=== PATIENT | male | born 1970 | race Caucasian/White ===

== ENCOUNTER 2017-02-01 06:02 | Emergency (ER) | payer BC ==
[2017-02-01 06:09] VITALS: RESP 18
--- NOTE | 2017-02-01 06:29 | ED ---
Skin/Abscess/FB HPI - General Chief complaint: Skin/Abscess/Foreign Body Stated complaint: Cyst Time Seen by Provider: 02/01/17 06:19 Source: patient Mode of arrival: ambulatory Limitations: no limitations - History of Present Illness Initial comments: Patient is a 46-year-old man who presents to be evaluated for what he is describing as a infected hair follicle, and indicates the suprapubic area. The patient noticed that there was a little swelling there a few weeks ago. He was seen at a clinic approximately a week ago and started on Vioxx but states this is not going away. He denies any systemic symptoms, including no fever or chills, palpitations, chest pain or dyspnea. Patient denies any abdominal pain. MD complaint: abscess/boil Onset/Timin -: week(s) Tetanus Up to Date: yes Severity: mild Quality: aching Consistency: constant Improves with: none Worsens with: none Associated symptoms: denies other symptoms - Related Data Home Medications Medication Instructions Recorded Confirmed No Known Home Medications [No 02/01/17 02/01/17 Known Home Medications] Allergies Allergy/AdvReac Type Severity Reaction Status Date / Time No Known Allergies Allergy Verified 02/01/17 06:09 Review of Systems ROS Statement: Those systems with pertinent positive or pertinent negative responses have been documented in the HPI. ROS Other: All systems not noted in ROS Statement are negative. Constitutional: Denies: fever, chills Respiratory: Denies: dyspnea Cardiovascular: Denies: chest pain, palpitations Skin: Reports: as per HPI, lesions Past Medical History Past Medical History: No Reported History History of Any Multi-Drug Resistant Organisms: None Reported Past Surgical History: Cholecystectomy, Orthopedic Surgery Additional Past Surgical History / Comment(s): Right knee Past Psychological History: No Psychological Hx Reported Smoking Status: Current every day smoker Past Alcohol Use History: Occasional Past Drug Use History: Marijuana General Exam Limitations: no limitations General appearance: alert, in no apparent distress Respiratory exam: Present: normal lung sounds bilaterally. Absent: respiratory distress, wheezes, rales, rhonchi, stridor Cardiovascular Exam: Present: regular rate, normal rhythm, normal heart sounds GI/Abdominal exam: Present: soft. Absent: distended, tenderness, guarding, rebound, mass Skin exam: Present: warm, dry, intact, erythema, other (Patient has an approximately 1.5-2 cm rubbery, palpable cyst in the suprapubic area with some overlying erythema, approximately 4 cm in diameter.) Course Vital Signs 02/01/17 06:05 Temperature 97.8 F Pulse Rate 74 Respiratory 18 Rate Blood Pressure 150/91 O2 Sat by Pulse 97 Oximetry Medical Decision Making - Medical Decision Making Patient is a 46-year-old man who has an infected sebaceous cyst. After discussion of risk, benefits, indications, patient agreed with attempting removal of the cyst. Local lidocaine was infused over the cyst and the skin was nicked with a scalpel. The incision was opened with blunt dissection revealing the capsule of the cyst. Blunt dissection was used to free the patient's left margin of the cyst and inferring the right margin of the cyst did rupture, freeing approximately 2 mL of sebaceous material mixed with pus. I was able to remove part of the capsule but some of it did remain. The patient requested that an attempt to remove the remainder of the cyst capsule as he was having some pain associated with this. A tail of iodoform gauze was placed. Results discussed with the patient and he'll be referred to the surgeon to see if further drainage is required. Disposition Clinical Impression: Infected sebaceous cyst Disposition: HOME SELF-CARE Condition: Good Instructions: Abscess Incision and Drainage (ED) Referrals: None,Stated [Primary Care Provider] - 1-2 days Rachel Pruett DO [Doctor of Osteopathic Medicine] - 1-2 days
[2017-02-01 07:14] VITALS: BP 156/94; PULSE 58; TEMP 97.2
== END 2017-02-01 07:13 | disposition home or self-care (01) ==
LOC: EC 06:02
DX: L08.9 Local infection of the skin and subcutaneous tissue, unspecified (principal); L72.3 Sebaceous cyst; F17.200 Nicotine dependence, unspecified, uncomplicated; Z90.49 Acquired absence of other specified parts of digestive tract
CPT/HCPCS: 10060; 99282

== ENCOUNTER → 2019-09-20 | Outpatient (CLI) | payer BC ==
--- NOTE | 2019-09-20 16:43 | CT ---
EXAMINATION TYPE: CT abdomen pelvis wo con DATE OF EXAM: 09/20/2019 COMPARISON: None HISTORY: Abdominal and pelvic pain CT DLP: 940 mGycm Examination of the solid and hollow viscera is limited given the lack of contrast. FINDINGS: LUNG BASES: No evidence for nodule. No evidence for infiltrate. LIVER/GB: The gallbladder is surgically absent. No space-occupying hepatic lesion. PANCREAS: No pancreatic mass identified. No inflammatory process seen. SPLEEN: No evidence for splenomegaly. No intrasplenic lesions seen. ADRENALS: No adrenal nodules identified. No evidence for thickening. KIDNEYS: No evidence for renal mass. No nephrolithiasis. No hydronephrosis. BOWEL: Appendix has a normal appearance. No evidence of bowel obstruction. No inflammatory process. Lymph nodes: No evidence for adenopathy greater than 1 cm. Abdominal aorta: Atheromatous changes seen. No evidence for aneurysm. Genital organs: No significant abnormality. Other: No significant abnormality. IMPRESSION: NO SIGNIFICANT ABNORMALITY TO ACCOUNT FOR THE PATIENT'S SYMPTOMS.
== END | disposition home or self-care (01) ==
LOC: RADCTMAIN 09:54
PROVIDERS: ATTEND Family Medicine
DX: R10.9 Unspecified abdominal pain (principal)
CPT/HCPCS: 74176

== ENCOUNTER 2020-04-29 10:21 | Day surgery (SDC) | payer BC, OTHER ==
[2020-04-27 14:50] VITALS: BMI 31.0
[~2020-04-29 10:21] MED LIST: LACTATED RINGERS 1,000 ML IV SCH; LIDOCAINE 1% (10MG/ML) FOR IV START INTRADERMA PRN
[2020-04-29 10:54] VITALS: RESP 16; TEMP 97.9
[2020-04-29] MEDS ORDERED: LIDOCAINE 1% INJ 10MG/ML (20 ML MDV) ONE (11:32)
[2020-04-29] MEDS ORDERED: PROPOFOL 10 MG/ML 20 ML VIAL IV ONE (11:32)
--- NOTE | 2020-04-29 11:34 | P.GSHP ---
History of Present Illness H&P Date: 04/29/20 Chief Complaint: Diarrhea This a 50-year-old male who has had history of diarrhea. Patient presents today for colonoscopy. Past Medical History Past Medical History: Hyperlipidemia, Hypertension Additional Past Medical History / Comment(s): abdominal pain below umbilicus, hx HEADACHES, RECTAL BLEEDING History of Any Multi-Drug Resistant Organisms: None Reported Past Surgical History: Cholecystectomy, Orthopedic Surgery Additional Past Surgical History / Comment(s): Right knee,colonoscopy Past Anesthesia/Blood Transfusion Reactions: No Reported Reaction Smoking Status: Current every day smoker - Past Family History Mother Family Medical History: No Reported History Medications and Allergies Home Medications Medication Instructions Recorded Confirmed Type Aspirin 325 mg PO DAILY 10/10/19 04/27/20 History amLODIPine [Norvasc] 2.5 mg PO QAM 10/10/19 04/27/20 History Atorvastatin [Lipitor] 20 mg PO DAILY 04/27/20 04/27/20 History Allergies Allergy/AdvReac Type Severity Reaction Status Date / Time No Known Allergies Allergy Verified 04/29/20 10:46 Surgical - Exam Vital Signs Temp Pulse Resp BP Pulse Ox 97.9 F 73 16 122/73 96 04/29/20 10:53 04/29/20 10:53 04/29/20 10:53 04/29/20 10:53 04/29/20 10:53 - General well developed, well nourished, no distress - Eyes PERRL - ENT normal pinna - Neck no masses - Respiratory normal expansion - Cardiovascular Rhythm: regular - Abdomen Abdomen: soft, non tender Assessment and Plan Plan: Diarrhea. We'll perform colonoscopy.
--- NOTE | 2020-04-29 11:45 | P.OP ---
Date of Procedure: 04/29/20 Preoperative Diagnosis: Diarrhea Postoperative Diagnosis: Normal colonoscopy, rectal biopsy pending Procedure(s) Performed: colonoscopy Anesthesia: MAC Surgeon: Richard Riley Pathology: other (Rectal biopsy) Condition: stable Disposition: PACU Description of Procedure: The patient's placed on the endoscopy table lateral position. He received IV sedation. Digital rectal exam was performed which revealed no abnormalities. The flexible colonoscope was then placed patient anus and passed throughout the entire colon. The ileocecal valve sutures. The cecum, ascending and transverse colon appeared normal. In the descending; was mild diverticular changes. There was no evidence of diverticula is. The scope was then brought back the rectum and this appeared normal. Due to the patient's symptoms of diarrhea a random rectal biopsy was performed with a cold forcep. The scope was withdrawn for p atient.
[2020-04-29 12:06] VITALS: BP 113/82; PULSE 72
== END 2020-04-29 12:29 | disposition home or self-care (01) ==
LOC: ORWHC2ENDO 10:21
PROVIDERS: ATTEND Surgery
DX: R19.7 Diarrhea, unspecified (principal); R10.30 Lower abdominal pain, unspecified; E78.5 Hyperlipidemia, unspecified; I10 Essential (primary) hypertension; Z87.19 Personal history of other diseases of the digestive system; Z90.49 Acquired absence of other specified parts of digestive tract; Z98.890 Other specified postprocedural states; F17.200 Nicotine dependence, unspecified, uncomplicated; Z79.82 Long term (current) use of aspirin; Z79.899 Other long term (current) drug therapy
CPT/HCPCS: 88305; 45380; J2001; J2704

== ENCOUNTER 2020-06-12 18:34 | Emergency (ER) | payer OTHER ==
[2020-06-12] MEDS ORDERED: ONDANSETRON ODT 4 MG TAB PO STA (19:14)
[2020-06-12] MEDS ORDERED: KETOROLAC 15 MG/ML 1 ML VIAL IM STA (19:14)
[2020-06-12] MEDS ORDERED: ORPHENADRINE 30 MG/ML 2 ML VIAL IM STA (19:14)
--- NOTE | 2020-06-12 19:25 | ED ---
General Adult HPI - General Chief complaint: Back Pain/Injury Stated complaint: back injury Time Seen by Provider: 06/12/20 19:03 Source: patient, RN notes reviewed Mode of arrival: wheelchair Limitations: no limitations - History of Present Illness Initial comments: 50-year-old male presents to the emergency room for a chief complaint of back pain. Patient reports that earlier today he was working on a roof when he twisted wrong. Patient states he felt the pain in the right side of his back. States it radiates down his right leg and into his right knee. States it is making his right knee film numb and tingly. Patient denies any weakness of the legs. Patient denies any numbness or tingling in the corner buttock. Denies bladder or bowel changes. Denies any radiating pain in the left leg. Patient denies fevers or chills. Patient does report nausea and he did vomit after he ate dinner tonight. He denies abdominal pain.Patient has no other complaints at this time including shortness of breath, chest pain, abdominal pain, nausea or vomiting, headache, or visual changes. - Related Data Home Medications Medication Instructions Recorded Confirmed Aspirin 325 mg PO DAILY 10/10/19 04/27/20 amLODIPine [Norvasc] 2.5 mg PO QAM 10/10/19 04/27/20 Atorvastatin [Lipitor] 20 mg PO DAILY 04/27/20 04/27/20 Allergies Allergy/AdvReac Type Severity Reaction Status Date / Time No Known Allergies Allergy Verified 06/12/20 18:38 Review of Systems ROS Statement: Those systems with pertinent positive or pertinent negative responses have been documented in the HPI. ROS Other: All systems not noted in ROS Statement are negative. Past Medical History Past Medical History: Hyperlipidemia, Hypertension Additional Past Medical History / Comment(s): abdominal pain below umbilicus, hx HEADACHES, RECTAL BLEEDING History of Any Multi-Drug Resistant Organisms: None Reported Past Surgical History: Cholecystectomy, Orthopedic Surgery Additional Past Surgical History / Comment(s): Right knee,colonoscopy Past Anesthesia/Blood Transfusion Reactions: No Reported Reaction Past Psychological History: No Psychological Hx Reported Smoking Status: Current every day smoker Past Alcohol Use History: None Reported Past Drug Use History: None Reported - Past Family History Mother Family Medical History: No Reported History General Exam Limitations: no limitations General appearance: alert, in no apparent distress Head exam: Present: atraumatic, normocephalic, normal inspection Eye exam: Present: normal appearance, PERRL, EOMI. Absent: scleral icterus, conjunctival injection, periorbital swelling ENT exam: Present: normal exam, mucous membranes moist Neck exam: Present: normal inspection, full ROM. Absent: tenderness, meningismus Respiratory exam: Present: normal lung sounds bilaterally. Absent: respiratory distress, wheezes, rales, rhonchi, stridor Cardiovascular Exam: Present: regular rate, normal rhythm, normal heart sounds. Absent: systolic murmur, diastolic murmur, rubs, gallop, clicks GI/Abdominal exam: Present: soft, normal bowel sounds. Absent: distended, tenderness, guarding, rebound, rigid Back exam: Present: other (DP pulse 2+ in the right lower extremity, capillary refill less than 2 seconds. Sensation intact throughout right lower sure. Patient refuses to lie on Bed for exam however is standing and ambulatory in exam room.). Absent: CVA tenderness (R), CVA tenderness (L), paraspinal tenderness (No tenderness noted of the lumbar spine or the paraspinal area.), vertebral tenderness Course Vital Signs 06/12/20 18:36 Temperature 98.1 F Pulse Rate 88 Respiratory 18 Rate Blood Pressure 114/67 O2 Sat by Pulse 98 Oximetry Medical Decision Making - Medical Decision Making Vitals are stable. Patient does have right sided low back pain radiating down his right leg. No red flag symptoms. No weakness. Patient ambulatory in exam room. Physical exam reveals neurovascular status intact in the right lower extremity. Patient does request an x-ray which is negative. No fractures seen. Disc spaces are fairly normal. Patient was given pain medication and had s ignificant improvement in pain stating his pain is now a 3 out of 10. Patient will be discharged home with Tylenol 3 and steroids. He was directed not to take Motrin while taking the steroid. He will follow up with orthopedics. He will return here for any worsening symptoms. - Radiology Data Radiology results: report reviewed, image reviewed Disposition Clinical Impression: Mechanical back pain, Radicular pain Disposition: HOME SELF-CARE Condition: Good Instructions (If sedation given, give patient instructions): Acute Low Back Pain (ED), Lower Back Exercises (ED) Additional Instructions: Please take Tylenol [address] or operate machinery while taking this. Take steroid as directed which you can start tomorrow as you received a dose in the emergency room. Follow-up with orthopedics. If you have any worsening symptoms such as bladder or bowel changes, numbness or take plain the corner buttock, weakness of the lower extremities, or fever return to the emergency room immediately. Is patient prescribed a controlled substance at d/c from ED?: No Referrals: Vance Jimenez MD [Primary Care Provider] - 1-2 days Deyanira Saez DO [Doctor of Osteopathic Medicine] - 1-2 days Time of Disposition: 20:50
[2020-06-12] MEDS ORDERED: HYDROmorphone 0.5 MG/0.5 ML SYRINGE IM STA (19:55)
[2020-06-12] MEDS ORDERED: predniSONE 20 MG TAB PO STA (19:55)
--- NOTE | 2020-06-12 20:05 | XR ---
EXAMINATION TYPE: XR lumbar spine 2 or 3V DATE OF EXAM: 06/12/2020 COMPARISON: NONE HISTORY: Back injury. Pain. TECHNIQUE: 3 views FINDINGS: Lumbar vertebra have normal alignment. Disc spaces are fairly normal. Sacroiliac joints are normal. There is no compression fracture. Abdominal aorta is atheromatous. IMPRESSION: Negative lumbar spine exam. No fracture seen.
[2020-06-12] MEDS ORDERED: ACET/COD 300 MG/30 MG STARTER PACK 6 TAB BTL PO STA (20:58)
[2020-06-12 21:08] VITALS: BP 157/92; PULSE 70; RESP 12; TEMP 98.7
== END 2020-06-12 21:08 | disposition home or self-care (01) ==
LOC: EC 18:34
DX: M54.9 Dorsalgia, unspecified (principal); M54.10 Radiculopathy, site unspecified; I10 Essential (primary) hypertension; E78.5 Hyperlipidemia, unspecified; F17.200 Nicotine dependence, unspecified, uncomplicated; Z79.82 Long term (current) use of aspirin; Z79.899 Other long term (current) drug therapy
CPT/HCPCS: 72100; 99283; 96372 ×3; J2360; J1885; J7512; J1170

== ENCOUNTER → 2020-08-24 | Outpatient (CLI) | payer OTHER ==
--- NOTE | 2020-08-25 06:51 | CT ---
EXAMINATION TYPE: CT lumbar spine wo con DATE OF EXAM: 08/24/2020 6:15 PM COMPARISON: Lumbar spine x-rays June 12, 2020. CT abdomen pelvis September 20, 2019. HISTORY: Low back pain radiating down bilateral legs after lifting/twisting injury x2 months ago. CT DLP: 1117.2 mGycm Automated exposure control for dose reduction was used. Unenhanced CT of the lumbar spine was performed. Bone and soft tissue window settings are submitted as well as coronal and sagittal reconstructions. There are 6 lumbar type vertebra redemonstrated. Alignment remains stable with slight grade 1 retroli sthesis L4 on L5 and L5 on L6 on sagittal images. Vertebral body heights are maintained. Disc space h eights fairly well maintained. Review of the axial images starts the labeled T12-L1 level on axial image 9 which appears within norm al limits. Axial images at L1-L2, L2-L3, and L3-L4 levels all appear within normal limits. Axial images at the L4-L5 level show [id number] broad disc bulge with right foraminal disc prot rusion component mildly effaces the anterior thecal sac. There is moderate right and mild left-sided anterior inferior neural foraminal narrowing. Axial images at the L5-L6 level show spondylolisthesis and moderate broad disc bulge along with mild to moderate facet degenerative change and ligament flavum hypertrophy causing prominent anterior and posterior lateral spinal canal effacement on axial image 66. There is moderate left along with mild t o moderate right-sided neural foraminal narrowing at this level. Axial images at L6-S1 level show moderate right greater than left facet degenerative changes bilatera lly. No significant disc herniation. Spinal canal is preserved and there is increased epidural fat at this level. Patent bilateral neural foramina noted. Mild/moderate calcified plaque in the distal abdominal aorta extending into common iliac arterial bra nch vessels. Paraspinal muscle bulk is preserved. IMPRESSION: 6 lumbar type vertebra. Spondylolisthesis and degenerative changes in the lower lumbar sp ine as detailed above.
== END | disposition home or self-care (01) ==
LOC: RADCTMAIN 07-21 13:46
PROVIDERS: ATTEND Family Medicine
DX: M43.16 Spondylolisthesis, lumbar region (principal); M47.816 Spondylosis without myelopathy or radiculopathy, lumbar region
CPT/HCPCS: 72131